=== PATIENT | female | born 1945 | race Caucasian/White ===

== ENCOUNTER 2021-08-13 00:45 | Inpatient (IN) | payer MEDICARE, OTHER ==
[~2021-08-13] VITALS: Ht 154.9 cm; Wt 67.5 kg
[2021-08-13] VITALS (16 sets, daily range): BP systolic 121–168; BP diastolic 67–82
[2021-08-13] MEDS ORDERED: ondansetron/PF 4mg/2ml inj IV ONE (01:10)
[2021-08-13] MEDS ORDERED: normal saline 1000ML IV soln IVB ONE (01:10)
[2021-08-13] MEDS: morphine 4 MG/ML inj SYRINge IV PRN ×2 (01:24→04:11)
[2021-08-13 01:30] LABS: BASOPHILS % (AUTO) 0.4 % (0-1); EOSINOPHILS # (AUTO) 0.3 X10'3 (0-0.9); EOSINOPHILS % (AUTO) 3.8 % (0-6); HEMATOCRIT 41.4 % (35.0-45.0); HEMOGLOBIN 14.2 g/dl (12.0-16.0); LYMPHOCYTES # (AUTO) 0.9 X10'3 (1.1-4.8); LYMPHOCYTES % (AUTO) 10.6 % (21-51); MEAN CORPUSCULAR HEMOGLOBIN 30.6 PG (27.0-31.0); MEAN CORPUSCULAR HGB CONC 34.2 g/dL (33.0-36.5); MEAN CORPUSCULAR VOLUME 89.5 FL (78-98); MEAN PLATELET VOLUME 8.7 FL (7.4-10.4); MONOCYTES # (AUTO) 0.5 X10'3 (0-0.9); MONOCYTES % (AUTO) 5.1 % (2-12); NEUTROPHILS # (AUTO) 7.1 X10'3 (1.8-7.7); NEUTROPHILS % (AUTO) 80.1 % (42-75); PLATELET COUNT 236 X10'3 (140-440); RED BLOOD COUNT 4.62 X10'6 (4.20-5.60); RED CELL DISTRIBUTION WIDTH 13.4 % (11.5-14.5); WHITE BLOOD COUNT 8.8 X10'3 (4.5-11.0)
[2021-08-13 01:43] LABS: ALANINE AMINOTRANSFERASE 31 U/L (12-78); ALBUMIN 3.9 G/DL (3.4-5.0); ALBUMIN/GLOBULIN RATIO 1.3 (1.1-1.5); ALKALINE PHOSPHATASE 113 IU/L (46-116); ANION GAP 9 (8-16); ASPARTATE AMINO TRANSFERASE 19 U/L (10-37); BILIRUBIN,TOTAL 0.5 MG/DL (0.1-1.0); BLOOD UREA NITROGEN 17 MG/DL (7-18); BUN/CREATININE RATIO 20.2 (6.6-38.0); CALCIUM 8.9 MG/DL (8.5-10.1); CHLORIDE 105 MMOL/L (99-107); CREATININE 0.84 MG/DL (0.40-0.90); GLUCOSE 131 MG/DL (70-104); POTASSIUM 3.9 MMOL/L (3.5-5.1); SODIUM 139 MMOL/L (135-145); TOTAL CARBON DIOXIDE 25.5 MMOL/L (24-32); TOTAL PROTEIN 6.9 G/DL (6.4-8.2); eGFR 66 ML/MIN
[2021-08-13 01:45] LABS: LIPASE 211 U/L (73-393)
[2021-08-13] MEDS ORDERED: potassium CL 10mEq/100ml bag 100 ML IV PRN (03:00)
[2021-08-13] MEDS ORDERED: magnesium Cl slow-release 64mg tablet PO PRN (03:00)
[2021-08-13] MEDS ORDERED: magnesium 2GM in 50ml NS 50 ML IV PRN (03:00)
[2021-08-13] MEDS ORDERED: potassium Cl 20 mEq SR tablet PO PRN ×2 (03:00)
[2021-08-13] MEDS ORDERED: ondansetron/PF 4mg/2ml inj IV PRN ×3 (03:00→16:25)
[2021-08-13] MEDS ORDERED: magnesium 4gm in 100ml NS 100 ML IV PRN (03:00)
[2021-08-13] MEDS ORDERED: morphine 2 MG/ML inj. syringe IV PRN ×4 (03:00→16:25)
[2021-08-13] MEDS ORDERED: LEVO50TA8 PO (03:58)
[2021-08-13] MEDS: normal saline 1000ml 1,000 ML IV SCH ×2 (04:11→13:00)
[2021-08-13 04:14] LABS: MAGNESIUM 1.8 MG/DL (1.5-2.4)
[2021-08-13 04:18] LABS: POTASSIUM 4.3 MMOL/L (3.5-5.1)
[2021-08-13] MEDS ORDERED: K and/or MAG REPLACEMENT MC SCH (08:00)
[2021-08-13] MEDS ORDERED: ceFAZolin/D5W- 1GM premix 50 ML IV SCH (08:00)
[2021-08-13] MEDS ORDERED: hydrALAZINE 20mg/ml inj. IV PRN (08:05)
[2021-08-13] MEDS ORDERED: fentaNYL/PF 50MCG/1 ML 2ML syringe IV PRN ×2 (08:05)
[2021-08-13] MEDS ORDERED: morphine 4 MG/ML inj SYRINge IV PRN ×2 (08:05→16:25)
[2021-08-13] MEDS ORDERED: ringers solution, lacted 1,000 ML IV SCH ×2 (08:05→16:25)
[2021-08-13] MEDS ORDERED: labetalol 20mg/4ml (5mg/ml) syringe IV PRN (08:05)
--- NOTE | 2021-08-13 08:08 | NUR ---
received report from rinku rico. awaiting patient arrival.
--- NOTE | 2021-08-13 08:30 | NUR ---
patient arrived to the floor. VSS. no complaints.
[2021-08-13] MEDS: ringers solution, lacted 1,000 ML IV ONE ×2 (08:42→14:35)
[2021-08-13] MEDS ORDERED: levoTHYROXINE 75mcg tablet PO SCH (08:59)
[2021-08-13 10:03] LABS: HEMOGLOBIN A1C 5.4 % (4.5-6.2)
--- NOTE | 2021-08-13 10:03 | NUR ---
rounded with Dr. Reynoso. Patient will go to surgery later today. Pain medication has been called into preferred pharmacy by his office.
[2021-08-13 10:29] LABS: CHOLESTEROL 180 MG/DL (0-200); HDL CHOLESTEROL 45 MG/DL (35-60); LDL CHOLESTEROL 104 MG/DL (50-100); TRIGLYCERIDES 144 MG/DL (20-135)
--- NOTE | 2021-08-13 15:31 | NUR ---
Report called to EDWINA Bauer in recovery. All belongings taken down with patient, [id number] Stephenie at bedside. 1600 dose of Ancef sent with patient.
[2021-08-13] MEDS ORDERED: BUPIVAcaine 0.5% inj/PF 30 ML ONE (16:01)
[2021-08-13] MEDS ORDERED: proCHLORperazine 10 MG/2 ml inj IV PRN (16:25)
[2021-08-13] MEDS ORDERED: meperidine/PF 25mg/ml syringe IV PRN ×3 (16:25)
[2021-08-13] MEDS ORDERED: FENTANYL CITRATE/PF 50 MCG/1 ML VIAL ONE (16:48)
[2021-08-13] MEDS ORDERED: midazolam 1 mg/ML 2ml injection ONE (16:50)
[2021-08-13] MEDS ORDERED: propofol inj 20 ML IV ONE (16:52)
[2021-08-13] MEDS ORDERED: ceFAZolin 1000mg inj ONE (17:01)
[2021-08-13] MEDS ORDERED: rocuronium 10mg/ml inj IV ONE (17:01)
[2021-08-13] MEDS ORDERED: acetaminophen 1,000mg/100ml IV 100 ML IV ONE (17:27)
[2021-08-13] MEDS ORDERED: CefTRIAXone 2000mg inj ONE (17:33)
[2021-08-13] MEDS ORDERED: sugammadex 200mg/2ml injection IV ONE (17:49)
--- NOTE | 2021-08-13 18:04 | NUR ---
Received from OR via HOSPITAL BED, accompanied by Anesthesiologist DR COLEMAN and report given by Anesthesiolgist. PT PRESENTS WITH 20G RIGHT AC, ABD DRESSING CLEAN DRY AND INTACT, VSS. Addendum: 08/13/21 at 1822 by Lizette Drew RN, RN Amended: Links added.
--- NOTE | 2021-08-13 18:18 | NUR ---
Problems reprioritized. Patient report given, questions answered & plan of care reviewed with EDWINA Plaza.
--- NOTE | 2021-08-13 18:32 | NUR ---
Patient in room [facility]. I have received report from ANTONELLA BLAND and had the opportunity to ask questions and assume patient care.
[2021-08-13] MEDS ORDERED: HYDROcodone/acetaminophen 5mg/325mg tablet PO ONE (19:20)
--- NOTE | 2021-08-13 20:04 | NUR ---
PATIENT A&OX4, DENIES PAIN, V/S WNL. I HAVE REVIEWED D/C INSTRUCTIONS WITH PATIENT and they have verbalized understanding patient d/c home with all belongings and family gave transport home. Addendum: 08/13/21 at 2016 by Lizette Drew RN, RN Amended: Links added.
== END 2021-08-13 20:04 | disposition home or self-care (01) | DRG 419 ==
LOC: ER 00:47 → ED HOLD 03:00 → EDBEDREQ 07:16 → SUR 3N 08:20
PROVIDERS: ADMIT Internal Medicine; ATTEND Family Medicine
PROC: 0FT44ZZ Resection of Gallbladder, Percutaneous Endoscopic Approach (ICD-10-PCS; principal; 2021-08-13 16:44)
DX: K80.00 Calculus of gallbladder with acute cholecystitis without obstruction (principal); E03.9 Hypothyroidism, unspecified; F41.9 Anxiety disorder, unspecified; Z20.822 Contact with and (suspected) exposure to COVID-19; K21.9 Gastro-esophageal reflux disease without esophagitis; Z90.710 Acquired absence of both cervix and uterus; Z88.2 Allergy status to sulfonamides
CPT/HCPCS: 36415; 71045; 74176; 80053; 80061; 82948; 83036; 83690; 83735; 84132; 84443; 84484; 85025; 87081; 87635; 93005; 96361; 96374; 99285; A4215; A4618; A7000; G0378; J0131; J0690; J0696; J2175; J2250; J2270; J2405; J2704; J3010; J3490; J7030; J7050; J7120; S0020